=== PATIENT | female | born 1945 | race Caucasian/White ===

== ENCOUNTER 2017-01-01 09:37 | Day surgery (SDC) | payer OTHER ==
[2017-01-01] MEDS ORDERED: MIDAZOLAM 2 MG/2 ML VIAL IVP ONE (09:48)
[2017-01-01] MEDS ORDERED: BENZOCAINE UNIT DOSE SPRAY HURRICAINE MM ONE (09:48)
[2017-01-01] MEDS ORDERED: fentaNYL 100 MCG/2 ML INJ IVP ONE (09:48)
[2017-01-01] MEDS ORDERED: NS 1,000 ML IV ONE (09:48)
[2017-01-01] MEDS ORDERED: PROPOFOL 200 MG/20 ML VIAL ONE ×2 (11:33)
[2017-01-01] MEDS ORDERED: LIDOCAINE 2% 100 MG/5 ML SYR IVP ONE (11:33)
[2017-01-01] MEDS ORDERED: SUCCINYLCHOLINE CHLORIDE*ANESTHESIA ONLY*200 MG/10 ML SYR IVP ONE (11:33)
--- NOTE | 2017-01-02 13:11 | ECHO ---
[id number] + + [address] : : [place] [address] : : [phone] + + Transesophageal Echocardiographic Report + -------+ :Name: BRANDON RENTERIA SStudy Date: 01/01/2017 11:13 AM : : Hospital Admission Number: [id number] Locati on: CVC: :: 1945 Gender: Female : :Age: 71 yrs Race: WH,White : :Reason For Study: Eval LV Fx : :History: Eval Mitral Valve : + -------+ Doppler Measurements \T\ Calculations MV E max livia: 56.7 cm/sec TR max livia: 267.5 cm/sec TR max P.6 mmHg RAP systole: 5.0 mmHg RVSP(TR): 33.6 mmHg Procedure With heart rate, blood pressure and oximetry monitered the patient was administered IV Versed, fentanyl and the bite block in place, the throat was anesthetized with topical spray. The Omniplane transesophageal probe was passed without difficulty. LV The left ventricular ejection fraction is normal. Atria No thrombus is detected in the left atrial appendage. No left atrial mass or thrombus visualized. Injection of contrast documented no interatrial shunt. The interatrial septum is intact with no evidence for an atrial septal defect. Mitral Valve The mitral valve is normal. There is no mitral valve stenosis. There moderate mitral regurgitation with multiple jets. Aortic Valve There is mild focal calcification of the non-coronary aortic leaflet. There is no aortic stenosis. There is no aortic insufficiency. Pulmonic Valve The pulmonic valve is normal in structure and function. There is no pulmonic valvular regurgitation. Tricuspid Valve There is mild to moderate tricuspid regurgitation. Vessels Mild atherosclerotic plaque(s) in the descending aorta. Pericardium There is no pericardial effusion. Conclusion A 2D transesophageal echocardiogram with color flow Doppler was performed. The left ventricular ejection fraction is normal. No thrombus is detected in the left atrial appendage. No left atrial mass or thrombus visualized. Injection of contrast documented no interatrial shunt. The interatrial septum is intact with no evidence for an atrial septal defect. There is mild focal calcification of the non-coronary aortic leaflet. There is mild to moderate tricuspid regurgitation. Mild atherosclerotic plaque(s) in the descending aorta. There is no pericardial effusion. There moderate mitral regurgitation with multiple jets. Final Reading Physician: Dr Linda Lau electronically signed on 01/02/2017 01:10 PM Ordering Physician: Linda Lau Performed By: Dr Linda Lau
== END 2017-01-01 13:16 | disposition home or self-care (01) ==
LOC: FCATH 09:37
PROVIDERS: ATTEND Internal Medicine Cardiovascular Disease
PROC: B246ZZ4 Ultrasonography of Right and Left Heart, Transesophageal (ICD-10-PCS; principal; 2017-01-01)
DX: I34.0 Nonrheumatic mitral (valve) insufficiency (principal); I36.1 Nonrheumatic tricuspid (valve) insufficiency; I10 Essential (primary) hypertension; I51.9 Heart disease, unspecified; J98.4 Other disorders of lung
CPT/HCPCS: J0330; J2001; J2704

== ENCOUNTER → 2017-03-28 | Outpatient (CLI) | payer OTHER | LOC: BMCIMAGING 08:51 | DX: Z12.31 Encounter for screening mammogram for malignant neoplasm of breast (principal); Z80.3 Family history of malignant neoplasm of breast | CPT/HCPCS: G0202 ==

== ENCOUNTER → 2017-10-17 | Outpatient (CLI) | payer OTHER | LOC: BHFA 09:15 | PROVIDERS: ATTEND Internal Medicine Cardiovascular Disease | DX: I48.91 Unspecified atrial fibrillation (principal) ==

== ENCOUNTER → 2018-04-03 | Outpatient (CLI) | payer OTHER | LOC: BMCIMAGING 09:29 | DX: Z12.31 Encounter for screening mammogram for malignant neoplasm of breast (principal); Z13.820 Encounter for screening for osteoporosis; M85.89 Other specified disorders of bone density and structure, multiple sites; E07.9 Disorder of thyroid, unspecified; Z80.3 Family history of malignant neoplasm of breast; Z78.0 Asymptomatic menopausal state ==

== ENCOUNTER → 2018-04-09 | Outpatient (CLI) | payer OTHER | LOC: BHFA 09:15 | PROVIDERS: ATTEND Physician Assistant Medical | DX: I48.91 Unspecified atrial fibrillation (principal); Z79.899 Other long term (current) drug therapy ==

== ENCOUNTER → 2018-09-17 | Outpatient (CLI) | payer OTHER | LOC: BHFA 15:00 | PROVIDERS: ATTEND Internal Medicine Cardiovascular Disease | DX: I48.91 Unspecified atrial fibrillation (principal) ==

== ENCOUNTER → 2018-10-20 | Outpatient (CLI) | payer OTHER | LOC: BHCLAF 09:15 | PROVIDERS: ATTEND Internal Medicine Cardiovascular Disease | DX: I48.91 Unspecified atrial fibrillation (principal); R01.1 Cardiac murmur, unspecified | CPT/HCPCS: 93306-PO ==

== ENCOUNTER → 2019-04-14 | Outpatient (CLI) | payer OTHER | LOC: BMCIMAGING 07:45 ==